=== PATIENT | female | born 1980 | race American Indian/Alaskan Native ===

== ENCOUNTER 2021-07-27 14:26 | Emergency (ER) | payer OTHER ==
[2021-07-27 16:10] VITALS: BP 134/64
[2021-07-27] MEDS ORDERED: CYCLOBENZAPRINE 10 MG TAB PO ONE (19:20)
[2021-07-27] MEDS ORDERED: KETOROLAC 10 MG TAB PO ONE (19:20)
[2021-07-27] MEDS ORDERED: DEXAMETHASONE 4 MG TAB PO ONE (19:20)
[2021-07-27] MEDS ORDERED: BUTALB/ACETAMINOPHEN/CAFFEINE TAB PO ONE (19:21)
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
== END 2021-07-27 19:40 | disposition home or self-care (01) ==
LOC: ED 14:26
DX: M54.12 Radiculopathy, cervical region (principal); M25.512 Pain in left shoulder; Z88.8 Allergy status to other drugs, medicaments and biological substances; Z79.899 Other long term (current) drug therapy; V87.7XXA Person injured in collision between other specified motor vehicles (traffic), initial encounter; Y93.89 Activity, other specified; Y92.488 Other paved roadways as the place of occurrence of the external cause; Y99.8 Other external cause status
CPT/HCPCS: 99282; J8540